=== PATIENT | female | born 1990 | race Hispanic/Latino ===

== ENCOUNTER 2025-04-18 13:18 | Emergency (ER) | payer OTHER ==
[~2025-04-18] VITALS: Ht 154.9 cm; Wt 72.6 kg
[2025-04-18 13:18] VITALS: TEMP 97.8
[2025-04-18 14:40] LABS: BASOPHILS % 0.5 % (0.0-1.0); EOSINOPHILS % 2.4 % (0.0-6.0); LYMPHOCYTES % 22.4 % (18.0-39.1); MONOCYTES % 7.5 % (4.4-11.3); NEUTROPHILS % 67.0 % (38.7-80.0); RED CELL DISTRIBUTION WIDTH 13.0 % (11.7-14.4)
[2025-04-18 14:59] LABS: EST GLOMERULAR FILTRATION RATE 124 ML/MIN (>=60)
[2025-04-18 15:06] LABS: INR 0.97
[2025-04-18 15:13] VITALS: PULSE 74; RESP 17
[2025-04-18] MEDS: ONDANSETRON HCL INJ 2MG/ML 2ML 2 MG/ML VIAL IV STA (15:14)
[2025-04-18] MEDS: KETOROLAC TROMETHAMINE 30 MG/ML VIAL IV STA (15:14)
[2025-04-18] MEDS: HYDROCODONE/APAP 5MG-325MG TAB PO ONE (15:15)
[2025-04-18] MEDS: SODIUM CHLORIDE 0.9% 1000ML 1,000 ML IV STA (15:15)
[2025-04-18] MEDS ORDERED: KETOROLAC TROME10 MG PO (17:11)
[2025-04-18] MEDS ORDERED: METHOCARBAMOL500 MG PO (17:11)
[2025-04-18 17:31] VITALS: BP 118/92; PULSE 74; RESP 17; O2SAT 98
== END 2025-04-18 17:25 | disposition home or self-care (01) ==
LOC: ER 14:20
DX: R07.89 Other chest pain (principal); M54.6 Pain in thoracic spine; W01.198A Fall on same level from slipping, tripping and stumbling with subsequent striking against other object, initial encounter; Y92.89 Other specified places as the place of occurrence of the external cause
CPT/HCPCS: 36415; 72128; 80053; 84484; 84702; 85025; 85610; 85730; 93005; 99283; J1885; J2405; J7030